=== PATIENT | female | born 1990 | race Caucasian/White ===

== ENCOUNTER 2016-11-19 18:44 | Emergency (ER) | payer MEDICAID ==
[~2016-11-19] VITALS: Ht 154.9 cm; Wt 88.0 kg
[~2016-11-19 18:44] MED LIST: ANTIVERT25 MG PO; BENTYL10 MG PO; CLARITIN10 MG PO; COLACE100 MG PO; DICLEGIS DR 101 EACH PO; FERROUS SULFAT325 M1 PO; LEXAPRO5 MG PO; MOTRIN800 MG PO; NORCO 325-5 MG1 TAB PO; PRENATAL PLUS I1 TAB PO; PRILOSEC20 MG PO; XANAX0.5 MG PO
== END 2016-11-19 19:16 | disposition short-term general hospital (02) ==
LOC: ER 18:44
DX: H92.01 Otalgia, right ear (principal); Z88.6 Allergy status to analgesic agent; Z88.8 Allergy status to other drugs, medicaments and biological substances

== ENCOUNTER → 2016-12-11 | Outpatient (CLI) | payer MEDICAID | END | disposition short-term general hospital (02) | LOC: CLORTH 07:59 | DX: Z47.89 Encounter for other orthopedic aftercare (principal) ==

== ENCOUNTER → 2016-12-25 | Outpatient (CLI) | payer MEDICAID | END | disposition short-term general hospital (02) | LOC: CLORTH 11:51 | DX: Z47.89 Encounter for other orthopedic aftercare (principal) ==

== ENCOUNTER 2017-02-25 14:55 | Emergency (ER) | payer MEDICAID ==
[~2017-02-25] VITALS: Ht 154.9 cm; Wt 88.5 kg
== END 2017-02-25 15:45 | disposition short-term general hospital (02) ==
LOC: ER 14:55
DX: G51.9 Disorder of facial nerve, unspecified (principal); Z88.5 Allergy status to narcotic agent; Z88.6 Allergy status to analgesic agent; Z88.2 Allergy status to sulfonamides; Z88.8 Allergy status to other drugs, medicaments and biological substances

== ENCOUNTER 2017-03-06 18:24 | Emergency (ER) | payer MEDICAID ==
[~2017-03-06] VITALS: Ht 154.9 cm; Wt 89.4 kg
== END 2017-03-06 19:58 | disposition short-term general hospital (02) ==
LOC: ER 18:24
DX: R11.2 Nausea with vomiting, unspecified (principal); G50.0 Trigeminal neuralgia; F32.9 Major depressive disorder, single episode, unspecified; F41.9 Anxiety disorder, unspecified; Z90.89 Acquired absence of other organs; Z90.49 Acquired absence of other specified parts of digestive tract; Z88.2 Allergy status to sulfonamides; Z88.8 Allergy status to other drugs, medicaments and biological substances; Z88.5 Allergy status to narcotic agent; Z88.6 Allergy status to analgesic agent